=== PATIENT | male | born 1985 | race Caucasian/White ===

== ENCOUNTER 2021-06-29 14:35 | Outpatient (REF) | payer BC, SELFPAY ==
[2021-06-29 18:33] LABS: Hematocrit 45.7 % (42.0-52.0); Hemoglobin 16.1 g/dl (14.0-18.0); Mean Corpuscular HGB Conc 35.2 g/dl (31.0-36.0); Mean Corpuscular Volume 93.6 fL (80.0-98.0); Mean Platelet Volume 10.9 fL (9.4-12.4); Platelet Count 216 X10*3/uL (160-400); Red Blood Count 4.88 X10*6/uL (4.60-5.80); Red Cell Distribution Width 11.9 % (11.0-16.0); White Blood Count 6.4 X10*3/uL (4.8-10.8)
[2021-06-29 18:45] LABS: Alanine Aminotransferase 48 U/L (0-40); Albumin Level 4.5 g/dL (3.5-5.0); Alkaline Phosphatase 94 U/L (39-117); Anion Gap 12 (12-20); Aspartate Amino Transferase 29 U/L (5-37); Bilirubin Total 0.5 mg/dL (0.0-1.0); Blood Urea Nitrogen 17 mg/dL (9-16); Calcium 10.1 mg/dL (8.4-10.2); Carbon Dioxide 26 mmol/L (22-29); Chloride 105 mmol/L (96-108); Estimated Glomerular Filt Rate > 60; Glucose Random 86 mg/dL (60-115); Potassium 4.1 mmol/L (3.3-5.1); Sodium 139 mmol/L (135-145); Total Protein 7.6 g/dL (6.5-8.0)
[2021-06-29 19:08] LABS: Thyroid Stimulating Hormone 1.76 uIU/mL (0.32-4.0); Vitamin D 25-OH Total 21.7 ng/mL (>30)
[2021-07-01 07:46] LABS: Sex Hormone Binding Globulin 40 nmol/L (10-50)
[2021-07-06 15:25] LABS: Testosterone, Free 70.5 pg/mL (35.0-155.0); Testosterone, Total 511 ng/dL (250-1100)
== END 2021-06-29 14:36 | disposition home or self-care (01) ==
LOC: HO.MANLDS 14:35
PROVIDERS: PCP Internal Medicine; Visit Provider Internal Medicine
DX: R53.83 Other fatigue (principal)
CPT/HCPCS: 36415; 80053; 82306; 84270; 84402; 84403; 84443; 85027